=== PATIENT | female | born 1980 | race Caucasian/White ===

== ENCOUNTER → 2020-07-23 11:46 | Outpatient (BNVA) | payer OTHER, SELFPAY | PROVIDERS: Visit Provider Obstetrics & Gynecology | DX: Z32.01 Encounter for pregnancy test, result positive (principal) | CPT/HCPCS: 81025 ==

== ENCOUNTER → 2020-08-04 10:31 | Outpatient (BNVA) | payer OTHER, SELFPAY | PROVIDERS: Visit Provider Nurse Practitioner Women's Health | DX: Z34.01 Encounter for supervision of normal first pregnancy, first trimester (principal) | CPT/HCPCS: 84315; 84702; 85027; 86850; 86900 ==

== ENCOUNTER → 2020-08-26 14:49 | Outpatient (BNVA) | payer OTHER, SELFPAY | PROVIDERS: Visit Provider Obstetrics & Gynecology | DX: Z34.01 Encounter for supervision of normal first pregnancy, first trimester (principal) | CPT/HCPCS: 80053; 80307; 82950; 84315; 84443; 86592; 86762; 86803; 87340; 87491; 87591; 87806; 88175 ==

== ENCOUNTER → 2020-10-01 13:05 | Outpatient (BNVA) | payer OTHER, SELFPAY | PROVIDERS: Visit Provider Obstetrics & Gynecology | DX: O98.512 Other viral diseases complicating pregnancy, second trimester (principal); B00.9 Herpesviral infection, unspecified; Z3A.00 Weeks of gestation of pregnancy not specified | CPT/HCPCS: 82105; 84315 ==

== ENCOUNTER → 2020-11-11 14:08 | Outpatient (BNVA) | payer OTHER, SELFPAY | PROVIDERS: Visit Provider Obstetrics & Gynecology | DX: R53.83 Other fatigue (principal); R30.9 Painful micturition, unspecified | CPT/HCPCS: 81000; 85025; 87086 ==

== ENCOUNTER → 2020-12-21 09:08 | Outpatient (BNVA) | payer OTHER, SELFPAY | PROVIDERS: Visit Provider Obstetrics & Gynecology | DX: O99.013 Anemia complicating pregnancy, third trimester (principal); O98.513 Other viral diseases complicating pregnancy, third trimester; O09.513 Supervision of elderly primigravida, third trimester; Z3A.28 28 weeks gestation of pregnancy | CPT/HCPCS: 82950; 84315; 85025 ==

== ENCOUNTER 2021-02-11 01:36 | Inpatient (IN) | payer OTHER, SELFPAY ==
[2021-02-11] VITALS (69 sets, daily range): BP systolic 103–154; BP diastolic 55–87; PULSE 45–85; RESP 15–17; TEMP 36.3–36.8; O2SAT 98–100; BMI 21.9
[2021-02-11 01:38] LABS: Nitrazine Paper, PH POS
[2021-02-11] MEDS: dextrose 5%-lactated ringers 1,000 ML 125 ML IV (02:39)
[2021-02-11] MEDS: ampicillin 2,000 MG in sodium chloride 0.9% (plus) 50 ML 100 MG IV (02:39)
[2021-02-11 02:51] LABS: Basophils # 0.1 10^3/uL (0.0-0.1); Basophils % 0.5 %; Eosinophils % 0.4 %; Hematocrit 37.9 % (37.0-47.0); Hemoglobin 12.7 g/dL (11.5-15.3); Lymphocytes # 2.3 10^3/uL (0.8-4.8); Lymphocytes % 23.1 %; Mean Corpuscular HGB Conc 33.5 g/dL (30.0-36.0); Mean Corpuscular Hemoglobin 32.3 pg (28.0-34.0); Mean Corpuscular Volume 96.4 fL (81-99); Mean Platelet Volume 11.3 fL (7.4-10.4); Monocytes # 0.8 10^3/uL (0.2-0.9); Monocytes % 7.7 %; Neutrophils # 6.76 10^3/uL (1.8-7.7); Nucleated Red Blood Cells % 0 %; Platelet Count 219 10^3/cmm (130-400); Red Blood Count 3.93 10^6/uL (4.1-5.3); Red Cell Distribution Width 12.7 % (12.1-15.1)
[2021-02-11] MEDS: oxytocin 30 UNIT/500 ML BAG IV (06:00)
[2021-02-11] MEDS: ampicillin 1,000 MG in sodium chloride 0.9% (plus) 50 ML 100 MG IV ×2 (06:18→10:34)
[2021-02-11] MEDS: lactated ringers 1,000 ML 999 ML IV ×2 (07:45→08:58)
--- NOTE | 2021-02-11 09:41 | P.ANESASSM_ITS ---
Pre-Anesthetic Assessment Pre-Anesthetic Assessment: Height/Weight: Height 1.63 m Weight 58.06 kg Temp Pulse Resp BP Pulse Ox 97.8 F 77 17 122/67 99 02/11/21 06:47 02/11/21 09:29 02/11/21 07:00 02/11/21 09:29 02/11/21 08:47 Was Beta Lakshmi taken within 24 hours: N/A Was Clonidine taken within 24 hours: N/A Social: Social History: No alcohol and No tobacco Exam: Pre-Anes Outpt Exam: alert, oriented x 3, clear to auscultation bilaterally and regular rate & rhythm Airway: Submandibular: WNL Cervical ROM: WNL MP: 2 Dentition: Full History/ROS: No significant history except as noted CV/HEM: CV/HEM: Anemia Anesthetic Plan: Anesthesia: Regional (specify below) (Labor epidural) Risk of > 500 ml blood loss (7ml/kg in children): No Meds/Allergies Current Medications: Current Medications Generic Name Dose Route Start Last Admin Trade Name Freq PRN Reason Stop Dose Admin Dextrose/Lactated Ringer's 1,000 mls @ 125 m ls/hr 02/11/21 02:00 02/11/21 02:39 Dextrose 5%-Lact ated Ringers IV 125 mls/hr .Q8H MARTÍNEZ Administration Lactated Ringer's 1,000 mls @ 999 m ls/hr 02/11/21 01:50 02/11/21 09:23 Lactated Ringers IV Infused .Q1H1M PRN Infusion See label comment s Lactated Ringer's 1,000 mls @ 999 m ls/hr 02/11/21 01:50 02/11/21 08:58 Lactated Ringers IV 999 mls/hr .Q1H1M PRN Administration Per L&D Rescitati on Protocol Ampicillin Sodium 1,000 mg/ 50 mls @ 100 mls/ hr 02/11/21 05:53 02/11/21 07:27 Sodium Chloride IV Infused Q4H MARTÍNEZ Infusion Protocol Oxytocin 30 unit in 500 ml s @ 1 mls/hr 02/11/21 06:00 02/11/21 08:30 Pitocin IV 10 milliunit/min .Q24H MARTÍNEZ 10 mls/hr Titration Protocol 1 MILLIUNIT/MIN PFSH Anesthesia PFSH: Medical History Infertility, female Infertility and went through Clomid, IUI and was planning on IVF and has frozen embryos however implantation was not done as patient moved in 2018. No pertinent past medical history Denies diabetes, asthma, hypertension, seizures, DVT/PE PMD: none PCOS (polycystic ovarian syndrome) Diagnosed in 2017 with irregular cycles and blood work from the reproductive endocrinology clinic in [place]. Surgical History H/O dilation and curettage Done in [place] in 2017. When patient was having work-up for infertility cervical dilation for IUI was attempted however she had a stenotic cervix and had some sort of dilation procedure in the operating room. She states that scar tissue was removed at this time. History of cryosurgery for abnormal pap smear done at the age of 22. Family History Family/Other Breast cancer Maternal Aunt-- diagnosed at age 40 Father Heart disease Hypercholesteremia Hypertension Mother Thyroid disease Denies family history of Colon cancer Ovarian cancer Diabetes Bleeding disorder Uterine cancer Stroke Female Reproductive History: : 1 Data Anesthesia CBC & Chem 7: 02/11/21 02:25 Other Labs: Laboratory Results - last 48 hr 02/11/21 02:25 WBC 10.0 RBC 3.93 L Hgb 12.7 Hct 37.9 MCV 96.4 MCH 32.3 MCHC 33.5 RDW 12.7 Plt Count 219 MPV 11.3 H Neut % (Auto) 68.0 Lymph % (Auto) 23.1 [place] % (Auto) 7.7 Eos % (Auto) 0.4 Baso % (Auto) 0.5 Neut # (Auto) 6.76 Lymph # (Auto) 2.3 [place] # (Auto) 0.8 Eos # (Auto) 0.0 Baso # (Auto) 0.1 Nucleated RBC % (auto) 0 Nucleated RBCs # 0.0 Cardiac Studies: No Data to Display
--- NOTE | 2021-02-11 09:42 | ANES.PROC ---
Anesthesia Procedures Procedure/Date: 02/11/21 Epidural: Time Out Performed: Yes Consents Signed: Procedure Consent Consent: requested by attending/covering physician, from patient, risks and benefits reviewed and patient agrees to proceed Lumbar Level: L3-L4 Epidural position: sitting Epidural procedure: sterile prep of area, 1% lidocaine to numb the area, 18 g needle, neg for paresthesia, test dose given, 1.5% xylocaine 1:200k epi, placed PCEA, no systemic response, sterile dressing applied and 0.2% Ropiavacaine @ mls/hr (13) Additional Comments: ALEJO at 4cm, cath at 9cm. Bolused 5mls 2% lido through needle.
--- NOTE | 2021-02-11 10:09 | P.HP_ITS ---
Providers/Chief Complaint Admitting Physician: Monse Fields MD Primary MEDICAL ECONOMICS CONSULTANT: Dr Llanes Chief Complaint: poss srom HPI MEDICAL ECONOMICS CONSULTANT History of Present Illness Irene Blankenship is a 41 year old female at 35 3/7 weeks who presents for PPROM. Her is complicated by AMA, genital HSV and anemia. She is on suppression for HSV with valcyclovir and hasn't had a breakout since 30 weeks. She has no visible herpetic lesions. She reports that she had PPROM with clear fluid at about 0030 hours. This was confirmed in labor and delivery Present Details : 1 Para: 0 Labs Rubella: Immune RPR: Negative GBS: Unknown Review of Systems General: Reports: 10 or more systems reviewed and unremarkable except in HPI and below Medications/Allergies Home Medications Medication Instructions Recorded Confirmed Last Taken Type prenat.vits,irma,xlm-rasf-mjxwv 1 tab PO DAILY 08/04/20 02/11/21 02/10/21 08:00 History ferrous sulfate 325 mg (65 mg 325 mg PO BID 11/26/20 02/11/21 02/10/21 13:00 His tory iron) tablet breast pump #1 ea 01/04/21 02/02/21 Unknown Rx valacyclovir 500 mg tablet 500 mg PO BID 70 Days #140 tab 01/04/21 02/11/21 02/10/21 13:00 Rx Allergies Allergy/AdvReac Type Severity Reaction Status Date / Time No Known Allergies Allergy Verified 02/02/21 08:03 PFSH MEDICAL ECONOMICS CONSULTANT PFSH: Medical History Infertility, female Infertility and went through Clomid, IUI and was planning on IVF and has frozen embryos however implantation was not done as patient moved in 2018. No pertinent past medical history Denies diabetes, asthma, hypertension, seizures, DVT/PE PMD: none PCOS (polycystic ovarian syndrome) Diagnosed in 2017 with irregular cycles and blood work from the reproductive endocrinology clinic in [place]. Surgical History H/O dilation and curettage Done in [place] in 2017. When patient was having work-up for infertility cervical dilation for IUI was attempted however she had a stenotic cervix and had some sort of dilation procedure in the operating room. She states that scar tissue was removed at this time. History of cryosurgery for abnormal pap smear done at the age of 22. Family History Family/Other Breast cancer Maternal Aunt-- diagnosed at age 40 Father Heart disease Hypercholesteremia Hypertension Mother Thyroid disease Denies family history of Colon cancer Ovarian cancer Diabetes Bleeding disorder Uterine cancer Stroke History History History 1 Term Miscarriages/Ectopic Living Children Care [facility] Calculator Estimated Delivery Date Method Current WG Current Estimate 03/15/21 Ultrasound #1 35w 3d Other Estimates 03/30/21 LMP (Uncertain) 33w 2d Expected Delivery Route/Plan Vaginal Specific Issues/Plans * PCOS-GCT done and normal-no further intervention * Genital herpes-outbreak in 16 weeks--has had more outbreaks in the and has been on suppression from 30 weeks onwards * Advanced maternal age-NIPT low risk-no further intervention * Anemia-hemoglobin of 10 at 20 weeks-resolved with iron-continue * Uterine mass---? fibroid-not seen on follow-up ultrasound-reassess Vitals/I&O/Wt Last Vital Signs Temp 97.8 F 02/11/21 06:47 Pulse 58 L 02/11/21 10:00 Resp 17 02/11/21 07:00 BP 114/57 02/11/21 10:00 Pulse Ox 99 02/11/21 08:47 02/10/21 02/11/21 02/11/21 22:59 06:59 14:59 Intake Total 0.5 / 0.5 1060.583 / 1060.583 Balance 0.5 / 0.5 1060.583 / 1060.583 Weight last 48 hrs Weight 128 lb Physical Exam Const: COMMON NORMALS: no acute distress, average body habitus, patient oriented x3, no limitations, healthy appearing and alert GENERAL APPEARANCE: cooperative, comfortable, well kempt and well developed ORIENTATION/CONSCIOUSNESS: Yes awake, Yes oriented to person, Yes oriented to place and Yes oriented to time Neck/C-Spine: COMMON NORMALS: full ROM and supple Resp: COMMON NORMALS: normal respiratory effort EFFORT & INSPECTION: Yes able to speak in complete sentences GI: COMMON NORMALS: Soft to palpation and non-tender : OB/EXTERNAL & SPECULUM: external exam normal; no herpetic lesions MANUAL OB EXAM: dilated 1 cm, effaced 75% and station +1 AMNIOTIC FLUID: clear and Nitrazine positive Extremity: COMMON NORMALS: no clubbing, cyanosis or edema Psych: COMMON NORMALS: mental status grossly normal, Normal thought process present, cooperative, normal affect and activity/motor behavior normal APPEARANCE: Yes grossly normal ATTITUDE: Yes calm ACTIVITY/MOTOR BEHAVIOR: Yes appropriate eye contact Data : 02/11/21 02:25 A&P Assessment and plan (1) Anemia affecting in third trimester: Status: Acute (2) Herpes infection in : no lesions visualized Status: Acute Qualifiers: Trimester: second trimester Qualified Code(s): O98.512 - Other viral diseases complicating , second trimester; B00.9 - Herpesviral infection, unspecified (3) Advanced maternal age affecting , antepartum: Status: Acute (4) Supervision of normal first : Status: Acute Qualifiers: Trimester: second trimester Qualified Code(s): Z34.02 - Encounter for supervision of normal first , second trimester (5) premature rupture of membranes (PPROM) delivered, current hospitalization: Admit for labor augmentation Start GBS protocol for prematurity and unknown GBS status anticipate normal spontaneous delivery Status: Acute Attestations Medical Necessity Statement*: The patient has PPROM she will be admitted for delivery. Coding Level of Care Code Acute Winding Rack Operator for [facility] Fwd Diagnoses Anemia affecting in third trimester O99.013 Herpes infection in O98.512; B00.9 Trimester: second trimester Advanced maternal age affecting , antepartum Supervision of normal first Z34.02 Trimester: second trimester premature rupture of membranes (PPROM) delivered, current hospitalization O42.919
--- NOTE | 2021-02-11 12:40 | P.PCNOB_ITS ---
Delivery Note: Date of delivery: February 11, 2021 Pre-delivery diagnoses: PProm at 35 3/7 weeks Procedure: Op report anesthesia: Epidural Delivering Physician: eduardo Estimated blood loss (mL): 25 Delivery: The patient had complete cervical dilation and began to push. The head delivered in the CYN position over an intact perineum under epidural anesthesia. The nose and mouth were bulb suctioned. The shoulders and body delivered atraumatically. The baby was placed onto the mother's abdomen. The cord was clamped and cut. The placenta delivered spontaneously. It was inspected and found to be intact. Since the baby was premature, the placenta was sent to pathology. Inspection of the perineum revealed a small left periurethral laceration that was hemostatic. Estimated blood loss 25 mL. Apgars on baby were 8 at 1 minute and 9 at 5 minutes. Weight of baby is pending. Mother and baby were stable post delivery. A&P Assessment and plan (1) Anemia affecting in third trimester: Status: Acute (2) Herpes infection in : Status: Acute Qualifiers: Trimester: second trimester Qualified Code(s): O98.512 - Other viral diseases complicating , second trimester; B00.9 - Herpesviral infection, unspecified (3) Advanced maternal age affecting , antepartum: Status: Acute (4) Supervision of normal first : Status: Acute Qualifiers: Trimester: second trimester Qualified Code(s): Z34.02 - Encounter for supervision of normal first , second trimester (5) premature rupture of membranes (PPROM) delivered, current hospitalization: Status: Acute Coding Level of Care Code Acute 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
[2021-02-11 14:43] LABS: Coronavirus Test Green County Not Detected
[2021-02-11] MEDS: ibuprofen 800 mg tablet PO ×2 (14:58→21:33)
[2021-02-11] MEDS: benzocaine-menthol 78 gm Canister 1 SPRAY TOPICAL (14:59)
[2021-02-11] MEDS: lanolin oint 7 gm 1 APPLIC TOPICAL (14:59)
[2021-02-11] MEDS: docusate sodium 100 mg Capsule PO (18:19)
[2021-02-12 01:03] LABS: Hematocrit 32.4 % (37.0-47.0); Hemoglobin 11.1 g/dL (11.5-15.3); Mean Corpuscular HGB Conc 34.3 g/dL (30.0-36.0); Mean Corpuscular Hemoglobin 32.8 pg (28.0-34.0); Mean Corpuscular Volume 95.9 fL (81-99); Mean Platelet Volume 10.8 fL (7.4-10.4); Platelet Count 174 10^3/cmm (130-400); Red Blood Count 3.38 10^6/uL (4.1-5.3); Red Cell Distribution Width 12.7 % (12.1-15.1); White Blood Count 15.3 10^3/uL (4.0-10.0)
[2021-02-12 05:51] VITALS: BP 117/63; PULSE 57
[2021-02-12 05:57] VITALS: TEMP 36.3
[2021-02-12] MEDS: prenatal vitamin Capsule 1 CAP PO (09:20)
[2021-02-12] MEDS: docusate sodium 100 mg Capsule PO (09:20)
[2021-02-12] MEDS: ibuprofen 800 mg tablet PO (09:20)
[2021-02-12 10:50] VITALS: BP 120/74; PULSE 44
[2021-02-12 11:03] VITALS: RESP 16; TEMP 36.8; O2SAT 97
[2021-02-12 15:03] VITALS: BP 111/71; PULSE 89
[2021-02-12 15:07] VITALS: RESP 16; TEMP 36.6
--- NOTE | 2021-02-12 15:07 | P.DS_ITS ---
Discharge Providers Date of Admission: 02/11/21 01:36 Date of Discharge: February 12, 2021 Attending Provider at Admission: Monse Fields MD Attending Provider at Discharge: Torsten Llanes - PRE-DELIVERY DIAGNOSIS: 41-year-old 1 para 0 at 35 weeks and 3 days gestation premature rupture of membranes Anemia on iron Herpes on Valtrex suppression Advanced maternal age POST-DELIVERY DIAGNOSIS: Vaginal delivery on 02/11/2021 PROCEDURE: Vaginal delivery on 02/11/2021 HOSPITAL COURSE: She underwent an uncomplicated vaginal delivery on 02/11/[address] Fields---please refer to her delivery note for details of labor and delivery. She did well on day 0 and was ambulating well, tolerating regular diet, voiding freely, passing flatus. She was breast-feeding without difficulty and bonding well with her daughter. Pain was well-controlled with by mouth pain medication. She denied nausea, vomiting, fever, chills, shortness of breath, leg pain. She had moderate vaginal bleeding. On day # 1 she continued to do well with stable vital signs and stable hemoglobin at 11.1. She was discharged home on day 1 in a stable condition, as she desired early discharge. Warning signs for endometritis, mastitis, DVT/PE were reviewed with her. Post delivery activity restrictions were also reviewed with her at all her questions were answered to her satisfaction. Plans on using control pills for contraception which will be started at her visit EXAM AT DISCHARGE: Gen.: No acute distress Heart: S1-S2 heard, regular rate and rhythm Lungs: Clear to auscultation bilaterally Abdomen: Soft, fundus firm below umbilicus, Legs: No calf tenderness, trace pedal edema. CONDITION AT DISCHARGE: Stable This documentation was created by [employer] radial drill operator software (known for inherent radial drill operator error). Every effort was made to assure accuracy of radial drill operator. Any obvious errors or omissions should be clarified with the author of the document. This documentation was created by [employer] radial drill operator software (known for inherent radial drill operator error). Every effort was made to assure accuracy of tr anscription. Any obvious errors or omissions should be clarified with the author of the document. Diagnoses at Discharge Discharge Diagnosis (1) Anemia affecting in third trimester: Status: Acute (2) Herpes infection in : Status: Acute Qualifiers: Trimester: second trimester Qualified Code(s): O98.512 - Other viral diseases complicating , second trimester; B00.9 - Herpesviral infection, unspecified (3) Advanced maternal age affecting , antepartum: Status: Acute (4) Supervision of normal first : Status: Acute Qualifiers: Trimester: second trimester Qualified Code(s): Z34.02 - Encounter for supervision of normal first , second trimester (5) premature rupture of membranes (PPROM) delivered, current hospitalization: Status: Acute Reason for Visit Reason for Visit: poss srom Physical Exam Urinary Catheter Management^: Saldivar: Cath Placed During This Visit: yes Urinary Catheter Date of Insertion: 02/11/21 Urinary Catheter Time of Insertion: 09:10 Discharge Data Data Completed and Pending: Pending at discharge Category Date Time Status Pathology: Surgic al [PTH] Routine Pth 02/11/21 12:46 Ordered Labs from last 24 hours 02/12/21 00:45 WBC 15.3 H RBC 3.38 L Hgb 11.1 L Hct 32.4 L MCV 95.9 MCH 32.8 MCHC 34.3 RDW 12.7 Plt Count 174 MPV 10.8 H Vitals: Last Vital Signs Temp 97.9 F 02/12/21 15:07 Pulse 89 02/12/21 15:03 Resp 16 02/12/21 15:07 BP 111/71 02/12/21 15:03 Pulse Ox 97 02/12/21 11:03 Discharge Plan Discharge Patient Disposition: Home Condition: Stable Prescriptions: New docusate sodium 100 mg Capsule 100 mg PO BID PRN (Reason: constipation) Qty: 30 RF: 0 ibuprofen 800 mg tablet 800 mg PO Q8H Qty: 30 RF: 0 Continued prenat.vits,irma,dam-hvro-nwzcl Tablet 1 tab PO DAILY RF: 0 Discontinued valacyclovir 500 mg tablet 500 mg PO BID 70 Days Qty: 140 RF: 0 ferrous sulfate 325 mg (65 mg iron) tablet 325 mg PO BID RF: 0 No Action (DME) breast pump [Pump In Style Advanced] Device See Rx Instructions .ROUTE .MEDSUPPLY Qty: 1 RF: 0 Discharge Orders: Discharge Order (Routine); Ordered 02/12/21 Ordered By: Torsten Hawley Referrals: Torsten Hawley MD [Physician] - 03/28/21 9:45 am (6-week visit) Activity Restrictions/Additional Instructions: Pelvic rest for 6 weeks, no heavy lifting for 6 weeks Discharge Attestations Time Spent in Discharge Care*: greater than 30 min Quality Metrics Clinical Quality Measures During this hospital stay, did patient experience: None Coding Level of Care Code Acute Chg FW DC note Diagnoses Anemia affecting in third trimester O99.013 Herpes infection in O98.512; B00.9 Trimester: second trimester Advanced maternal age affecting , antepartum Supervision of normal first Z34.02 Trimester: second trimester premature rupture of membranes (PPROM) delivered, current hospitalization O42.919
== END 2021-02-12 16:19 | disposition home or self-care (01) | DRG 806 ==
LOC: OPOB 01:43 → OBGYN 01:43
PROVIDERS: Admitting Provider Obstetrics & Gynecology; Visit Provider Obstetrics & Gynecology
DX: O42.913 Preterm premature rupture of membranes, unspecified as to length of time between rupture and onset of labor, third trimester (principal); O98.32 Other infections with a predominantly sexual mode of transmission complicating childbirth; Z37.0 Single live birth; A60.09 Herpesviral infection of other urogenital tract; O99.02 Anemia complicating childbirth; D64.9 Anemia, unspecified; O99.284 Endocrine, nutritional and metabolic diseases complicating childbirth; E28.2 Polycystic ovarian syndrome; Z3A.35 35 weeks gestation of pregnancy
CPT/HCPCS: 36415; 51702; 59025; 59409; 83986; 85025; 85027; 87635; 88307; 99211; J0290

== ENCOUNTER 2022-12-29 07:54 | Outpatient (CLI) | payer OTHER, SELFPAY ==
--- NOTE | 2022-12-29 08:03 | MM_ITS ---
WS: [id number] SCREENING DIGITAL TOMOSYNTHESIS MAMMOGRAM WITH CAD HISTORY: SCREENING COMPARISON: None available. Bilateral CC and MLO with tomosynthesis views submitted. Synthetic mammography reviewed. Computer aid ed detection analyzed. Breast composition: The breasts are extremely dense, which lowers the sensitivity of mammography. No suspicious masses, microcalcifications or architectural distortion. MM/[place] [id number] IMPRESSION: BI-RADS: 1-Negative FOLLOW UP: 1 Year Follow-up
== END 2022-12-29 07:55 | disposition home or self-care (01) ==
LOC: RAD 07:57
PROVIDERS: PCP Family Medicine; Visit Provider Family Medicine
DX: Z12.31 Encounter for screening mammogram for malignant neoplasm of breast (principal)
CPT/HCPCS: 77063; 77067

== ENCOUNTER 2024-06-18 09:14 | Outpatient (CLI) | payer OTHER, SELFPAY ==
--- NOTE | 2024-06-18 09:27 | MM_ITS ---
WS: [id number] VIEWS: MLO and CC views both breasts. 3D digital tomosynthesis is also included in this exam. Comparison made with prior exam of 12/29/2022. Findings: There was no sign of mass, architectural distortion or suspicious calcification in either breast. The breasts are extremely dense which lowers the sensitivity of mammography for this patient. MM/[place] [id number] Impression: BI-RADS: 1-Negative FOLLOW-UP: 1 Year Follow-up This mammogram was also analyzed by the Computer Aided Detection System R2 Imag e Jacquard Plate Maker.
== END 2024-06-18 09:15 | disposition home or self-care (01) ==
PROVIDERS: Visit Provider Family Medicine
DX: Z12.31 Encounter for screening mammogram for malignant neoplasm of breast (principal); R92.343 Mammographic extreme density, bilateral breasts
CPT/HCPCS: 77063; 77067

== ENCOUNTER 2025-06-19 11:00 | Outpatient (CLI) | payer OTHER, SELFPAY ==
--- NOTE | 2025-06-19 | MM_ITS ---
WS: [id number] BILATERAL SCREENING DIGITAL TOMOSYNTHESIS MAMMOGRAM WITH CAD HISTORY: ANNUAL SCREENING COMPARISON: 12/19/2023, 12/29/2022 Bilateral CC and MLO views with tomosynthesis and synthetic mammography submitted. Computer aided detection analyzed. Breast composition: The breasts are extremely dense, which lowers the sensitivity of mammography. No suspicious masses, microcalcifications or architectural distortion. MM/MM scr [place] tomosynthesis [id number] IMPRESSION: BI-RADS: 1 - Negative FOLLOW UP: 1 Year Follow-up
== END 2025-06-19 11:01 | disposition home or self-care (01) ==
LOC: RAD 11:01
PROVIDERS: PCP Family Medicine; Visit Provider Family Medicine
DX: Z12.31 Encounter for screening mammogram for malignant neoplasm of breast (principal); R92.343 Mammographic extreme density, bilateral breasts
CPT/HCPCS: 77063; 77067

== ENCOUNTER → 2025-10-02 09:19 | Outpatient (BNVA) | payer OTHER, SELFPAY | PROVIDERS: PCP Family Medicine; Visit Provider Obstetrics & Gynecology | DX: Z12.4 Encounter for screening for malignant neoplasm of cervix (principal); R53.83 Other fatigue; Z01.419 Encounter for gynecological examination (general) (routine) without abnormal findings; Z30.9 Encounter for contraceptive management, unspecified | CPT/HCPCS: 82306; 82670; 82677; 82679; 83001; 84402; 84403; 87624 ==